=== PATIENT | male | born 1955 | race Caucasian/White ===

== ENCOUNTER 2017-09-28 22:44 | Emergency (ER) | payer OTHER ==
--- NOTE | 2017-09-28 22:59 | ED GENERAL ADULT ---
History of Present Illness General Chief Complaint: ETOH/Drug Related Complaint Stated Complaint: ETOH Source: patient, old records, EMS Exam Limitations: intoxication Vital Signs & Intake/Output Vital Signs & Intake/Output Vital Signs Date Time Temp Pulse Resp B/P B/P Pulse O2 O2 Flow FiO2 Mean Ox Delivery Rate 09/28 2256 Room Air 09/28 2252 96.6 85 16 127/69 95 Room Air ED Intake and Output 09/29 0000 09/28 1200 Intake Total 0 Output Total Balance 0 Intake, Oral 0 Allergies Coded Allergies: MDX - SULFA (sulfonamide) (SULFA (SULFONAMIDE)) (PT HAS HAD ALLERGY SINCE CHILDHOOD. UNKNOWN RXN 09/28/17) Triage Note: PT BIBA FROM LOCAL PARKING LOT AFTER BEING FOUND LAYING DOWN AND ADMITS TO DRINK ALCOHOL. PT HAS ABREASION TO BOTH ELBOWS. DENIES PAIN. PT IS COOEPRATIVE. DENIES SI/HI. SECUIRTY AT BEDSIDE NOW FOR WANDING Triage Nurses Notes Reviewed? yes HPI: Patient brought in by ambulance after being found laying in a parking lot intoxicated. Patient denies any coingestions. Patient denies any suicidal or homicidal ideations. Patient is not sure out and the ground. Past History Travel History Traveled to [place] past 21 day No Medical History Any Pertinent Medical History? none Surgical History Surgical History: non-contributory Psychosocial History What is your primary language Persian Tobacco Use: Current Daily Use Daily Tobacco Use Amount/Type: => 5 Cigarettes daily ETOH Use: alcoholic Illicit Drug Use: denies illicit drug use Family History Hx Contributory? No Review of Systems Review of Systems Constitutional: Reports: no symptoms. EENTM: Reports: no symptoms. Respiratory: Reports: no symptoms. Cardiovascular: Reports: no symptoms. GI: Reports: no symptoms. Genitourinary: Reports: no symptoms. Musculoskeletal: Reports: no symptoms. Skin: Reports: no symptoms. Neurological/Psychological: Reports: no symptoms. Hematologic/Endocrine: Reports: no symptoms. Immunologic/Allergic: Reports: no symptoms. All Other Systems: Reviewed and Negative Physical Exam Physical Exam General Appearance: well developed/nourished, alert, awake Head: atraumatic, normal appearance Eyes: Bilateral: PERRL, EOMI, other (SLUGGISH). Ears, Nose, Throat: normal pharynx, normal ENT inspection, hearing grossly normal Neck: normal inspection, supple, full range of motion, no midline tenderness Respiratory: normal breath sounds, chest non-tender, no respiratory distress, lungs clear Cardiovascular: regular rate/rhythm, normal peripheral pulses Gastrointestinal: normal bowel sounds, soft, non-tender, no organomegaly Back: normal inspection, normal range of motion Extremities: ABRASION TO LEFT ELBOW Neurologic/Psych: no motor/sensory deficits, awake, alert, oriented x 3, normal mood/affect Skin: intact, normal color, warm/dry Lymphatic: no anterior cervical kristy Core Measures ACS in differential dx? No CVA/TIA Diagnosis: No Sepsis Present: No Sepsis Focused Exam Completed? No Progress Differential Diagnoses I considered the following diagnoses in my evaluation of the patient: [Alcohol intoxication, electrolyte abnormality, trauma] Plan of Care: Orders Procedure Date/time Status ETHANOL 09/28 2257 Complete COMPREHENSIVE METABOLIC PANEL 09/28 2257 Complete CBC WITHOUT DIFFERENTIAL 09/28 2257 Complete Laboratory Tests 09/28/17 2345: Anion Gap 14, Estimated GFR > 60, BUN/Creatinine Ratio 13.6, Glucose 126 H, Calcium 9.1, Total Bilirubin 0.7, AST 36, ALT 42, Alkaline Phosphatase 81, Total Protein 7.1, Albumin 3.9, Globulin 3.2, Albumin/Globulin Ratio 1.2, CBC w Diff NO MAN DIFF REQ, RBC 4.61 L, MCV 93.6, MCH 32.7 H, MCHC 34.9, RDW 13.9, MPV 7.5, Gran % 62.6, Lymphocytes % 27.2, Monocytes % 8.7, Eosinophils % 1.0, Basophils % 0.5, Absolute Granulocytes 3.8, Absolute Lymphocytes 1.6, Absolute Monocytes 0.5, Absolute Eosinophils 0.1, Absolute Basophils 0, Serum Alcohol 358.0 Diagnostic Imaging: Viewed by Me: Radiology Read, CT Scan. Discussed w/RAD: Radiology Read, CT Scan. Radiology Impression: PATIENT: JUANJOSE RAMOS PRESENT AGE: 62 PATIENT ACCOUNT NO: [id number] : 54 LOCATION: [facility] ORDERING PHYSICIAN: Willie Guerra MD SERVICE DATE: 09/28/17 EXAM TYPE: CAT - CT CERV SPINE WO IV CONTRAST; CT HEAD WO IV CONTRAST EXAMINATION: CT HEAD WITHOUT CONTRAST CT CERVICAL SPINE WITHOUT CONTRAST CLINICAL INFORMATION: EtOH. Found on the ground. COMPARISON: CT cervical spine and CT head 03/08/2012. TECHNIQUE: Imaging was performed from the skull base to vertex without intravenous administration of contrast. In addition, helical noncontrast CT imaging was acquired through the cervical spine and source images were reviewed along with axial reconstructions and sagittal and coronal MPRs. DLP: 1039.99 mGy -cm FINDINGS: HEAD: No intracranial mass, hemorrhage, or midline shift is visualized. There is atrophy with prominence of the ventricles and the sulci and hypodensity of the periventricular white matter due to chronic small vessel ischemic disease. There is physiologic calcifications in the basal ganglia bilaterally and the central cerebellar hemispheres bilaterally. There is vascular calcifications of the internal carotid arteries bilaterally. No extra- axial collections are identified. The paranasal sinuses and mastoid air cells are well aerated. CERVICAL SPINE: There is no evidence of acute cervical spine fracture. Vertebral bodies remain normal in height. Cervical vertebrae have normal alignment. There is mild degenerative disc narrowing with endplate spurs at C6-C7. Small endplate spurs are present at C2-C3, C4-C5 and C5-C6. There is mild bilateral facet joint arthrosis throughout cervical spine. No pre- or paravertebral soft tissue abnormality is identified. Limited assessment of the lung apices is unremarkable. IMPRESSION: 1. No acute intracranial pathology. 2. No CT evidence of acute cervical spine fracture or traumatic subluxation DICTATED BY: Michael Coyle MD DATE/TIME DICTATED:09/28/172337 CREDIT CHARGE AUTHORIZER :KEITH DATE/TIME TRANSCRIBED:09/28/172337 CONFIDENTIAL, DO NOT COPY WITHOUT APPROPRIATE AUTHORIZATION. <Electronically signed in Other Vendor System> SIGNED BY: Michael Coyle MD 09/28/17 8070, PATIENT: JUANJOSE RAMOS PRESENT AGE: 62 PATIENT ACCOUNT NO: [id number] : 54 LOCATION: [facility] ORDERING PHYSICIAN: Willie Guerra MD SERVICE DATE: 09/28/17 EXAM TYPE: RAD - XRY-ELBOW 3 OR MORE VIEWS, L EXAMINATION: XR ELBOW, LEFT CLINICAL INFORMATION: EtOH, abrasion COMPARISON: None TECHNIQUE: AP, lateral, and oblique views of the left elbow. FINDINGS: Osseous alignment is anatomic. No acute fracture is seen. No definite effusion. There are degenerative changes at the elbow articulation with spurring. No significant focal soft tissue abnormality is seen. IMPRESSION: No fracture identified. Degenerative changes. DICTATED BY: Victor Hugo Padilla MD DATE/TIME DICTATED:09/28/172337 CREDIT CHARGE AUTHORIZER:KEITH DATE/TIME TRANSCRIBED:2337 CONFIDENTIAL, DO NOT COPY WITHOUT APPROPRIATE AUTHORIZATION. < Electronically signed in Other Vendor System> SIGNED BY: Victor Hugo Padilal MD 09/28/17 0775 Initial ED EKG: none Comments: Patient is awake alert and oriented 3. Patient is nonerythematous somebody about potentially stopping drinking alcohol. Patient walks with a steady gait. Patient is clinically sober. Patient is stable for discharge at this time. Departure Departure Disposition: HOME OR SELF CARE Condition: Stable Clinical Impression Primary Impression: Alcohol intoxication Referrals: Alina Bautista MD (PCP/Family) Additional Instructions: RETURN FOR ANY CONCERNS Departure Forms: Customer Survey General Discharge Information Critical Care Note Critical Care Note Critical Care Time: non-applicable
--- NOTE | 2017-09-28 23:44 | RADIOLOGY REPORT ---
EXAMINATION: XR ELBOW, LEFT CLINICAL INFORMATION: EtOH, abrasion COMPARISON: None TECHNIQUE: AP, lateral, and oblique views of the left elbow. FINDINGS: Osseous alignment is anatomic. No acute fracture is seen. No definite effusion. There are degenerative changes at the elbow articulation with spurring. No significant focal soft tissue abnormality is seen. IMPRESSION: No fracture identified. Degenerative changes.
--- NOTE | 2017-09-28 23:50 | CT SCAN REPORT ---
EXAMINATION: CT HEAD WITHOUT CONTRAST CT CERVICAL SPINE WITHOUT CONTRAST CLINICAL INFORMATION: EtOH. Found on the ground. COMPARISON: CT cervical spine and CT head 03/08/2012. TECHNIQUE: Imaging was performed from the skull base to vertex without intravenous administration of contrast. In addition, helical noncontrast CT imaging was acquired through the cervical spine and source images were reviewed along with axial reconstructions and sagittal and coronal MPRs. DLP: 1039.99 mGy-cm FINDINGS: HEAD: No intracranial mass, hemorrhage, or midline shift is visualized. There is atrophy with prominence of the ventricles and the sulci and hypodensity of the periventricular white matter due to chronic small vessel ischemic disease. There is physiologic calcifications in the basal ganglia bilaterally and the central cerebellar hemispheres bilaterally. There is vascular calcifications of the internal carotid arteries bilaterally. No extra-axial collections are identified. The paranasal sinuses and mastoid air cells are well aerated. CERVICAL SPINE: There is no evidence of acute cervical spine fracture. Vertebral bodies remain normal in height. Cervical vertebrae have normal alignment. There is mild degenerative disc narrowing with endplate spurs at C6-C7. Small endplate spurs are present at C2-C3, C4-C5 and C5-C6. There is mild bilateral facet joint arthrosis throughout cervical spine. No pre- or paravertebral soft tissue abnormality is identified. Limited assessment of the lung apices is unremarkable. IMPRESSION: 1. No acute intracranial pathology. 2. No CT evidence of acute cervical spine fracture or traumatic subluxation
[2017-09-28 23:53] LABS: ABSOLUTE BASOPHIL COUNT 0 /CUMM (0.0-0.2); ABSOLUTE EOSINOPHIL COUNT 0.1 /CUMM (0.0-0.7); ABSOLUTE GRANULOCYTE CT 3.8 /CUMM (1.4-6.5); ABSOLUTE LYMPH COUNT 1.6 /CUMM (1.2-3.4); ABSOLUTE MONOCYTE COUNT 0.5 /CUMM (0.10-0.60); BASOPHIL % 0.5 % (0.0-2.0); GRANULOCYTE % 62.6 % (42.2-75.2); HEMATOCRIT 43.2 % (42-52); MEAN CORPUSCULAR HGB 32.7 PG (27.0-31.0); MEAN CORPUSCULAR HGB CONC 34.9 G/DL (33.0-37.0); MEAN CORPUSCULAR VOLUME 93.6 FL (80.0-94.0); MEAN PLATELET VOLUME 7.5 FL (7.4-10.4); PLATELET COUNT 178 /CUMM (130-400); RBC DISTRIBUTION WIDTH 13.9 % (11.5-14.5); RED BLOOD CELL CT 4.61 /CUMM (4.70-6.10); WHITE BLOOD CELL COUNT 6.1 /CUMM (4.8-10.8)
[2017-09-29 05:58] VITALS: BP 113/74
== END 2017-09-29 05:58 ==
LOC: ERH 22:44
PROVIDERS: Emergency Medicine
DX: F10.129 Alcohol abuse with intoxication, unspecified (principal); X58.XXXA Exposure to other specified factors, initial encounter; Y92.481 Parking lot as the place of occurrence of the external cause; Y93.9 Activity, unspecified
CPT/HCPCS: 73080-LT; 90471; 90714; G0480